=== PATIENT | male | born 1995 | race African-American/Black ===

== ENCOUNTER 2024-12-14 09:43 | Emergency (ER) | payer OTHER ==
[~2024-12-14] VITALS: Ht 190.5 cm; Wt 84.3 kg
[2024-12-14 09:46] VITALS: TEMP 37.2; O2SAT 100
[2024-12-14 09:47] VITALS: O2SAT 100
[2024-12-14 11:34] LABS: CLARITY URINE SL HAZY (CLEAR); COLOR URINE YELLOW (YELLOW); GLUCOSE URINE NEGATIVE (NEGATIVE); KETONES URINE NEGATIVE (NEGATIVE); LEUKOCYTE ESTERASE URINE NEGATIVE (NEGATIVE); NITRITE URINE NEGATIVE (NEGATIVE); OCCULT BLOOD URINE 3+ (NEGATIVE); PROTEIN URINE TRACE (NEGATIVE); SPECIFIC GRAVITY URINE >=1.030 (1.005-1.030); UROBILINOGEN URINE 0.2 E.U./dL (0.2-1.0)
[2024-12-14 11:38] VITALS: BP 158/102; PULSE 66; RESP 16
[2024-12-14] MEDS: KETOROLAC 30MG/ML VIAL IM NR (11:38)
[2024-12-14] MEDS: ONDANSETRON HCL 4MG/2ML INJ IM NR (11:38)
[2024-12-14 11:40] LABS: RBC URINE TNTC /hpf (0-2); SQUAMOUS EPITHELIAL CELL URINE FEW /lpf (RARE/1+)
[2024-12-14 11:41] LABS: BACTERIA URINE 1+; WBC URINE NONE SEEN /hpf (0-2); YEAST URINE NONE SEEN
[2024-12-14 12:10] LABS: BASOPHILS % 0.1 % (0.0-2.0); EOSINOPHILS % 0.8 % (0.0-5.0); HEMATOCRIT. 45.6 % (42.0-52.0); HEMOGLOBIN. 15.7 g/dL (14.0-18.0); LYMPHOCYTES % 7.8 % (20.0-50.0); MEAN CORPUSCULAR HEMOGLOBIN 30.1 pg (28.0-32.0); MEAN CORPUSCULAR HGB CONC 34.4 g/dL (31.0-37.0); MEAN CORPUSCULAR VOLUME 87.4 fL (80.0-94.0); MEAN PLATELET VOLUME 10.2 fl (7.4-10.4); MONOCYTES % 9.8 % (2.0-8.0); NEUTROPHILS % 81.5 % (40.0-76.0); PLATELET 217 x1000/uL (130-400); RED BLOOD CELL COUNT 5.22 mill/uL (4.7-6.1); RED CELL DISTRIBUTION WIDTH 12.9 % (11.6-14.6); WHITE BLOOD COUNT 9.2 x1000/uL (4.5-11.0)
[2024-12-14 12:29] LABS: CHLORIDE 103 mEq/L (98-107); POTASSIUM 3.8 mEq/L (3.5-5.1); SODIUM 140 mEq/L (136-145)
[2024-12-14 12:30] LABS: CARBON DIOXIDE 29 mEq/L (21-32)
[2024-12-14 12:31] LABS: CALCIUM 9.9 mg/dL (8.7-10.4)
[2024-12-14 12:32] LABS: PROTHROMBIN TIME 11.4 sec (9.6-11.0)
[2024-12-14 12:35] LABS: CREATININE 1.2 mg/dL (0.6-1.3); GLUCOSE 110 mg/dL (70-105)
[2024-12-14 12:36] LABS: UREA NITROGEN BLOOD 12 mg/dL (9-23)
[2024-12-14 12:37] LABS: ALANINE AMINOTRANSFERASE 20 IU/L (10-49); ALBUMIN 4.8 g/dL (3.2-4.8); ASPARTATE AMINOTRANSFERASE 19 IU/L (<34)
[2024-12-14 12:38] LABS: BILIRUBIN DIRECT 0.4 mg/dL (<=3.0); BILIRUBIN TOTAL 1.2 mg/dL (0.1-1.0); PROTEIN TOTAL 7.7 g/dL (6.0-8.3)
[2024-12-14] MEDS ORDERED: IOHEXOL-300 100 ML BOTTLE ONE (13:07)
[2024-12-14] MEDS ORDERED: ONDA4TAB50 MT (14:10)
[2024-12-14] MEDS ORDERED: HYDR-4001 MT (14:10)
[2024-12-14] MEDS ORDERED: TAMS-11 MT (14:10)
[2024-12-14] MEDS ORDERED: NAPR-681 PO (14:10)
[2024-12-14] MEDS ORDERED: CEPH500C2 MT (14:10)
== END 2024-12-14 14:58 | disposition home or self-care (01) ==
LOC: ER 09:59
DX: N13.2 Hydronephrosis with renal and ureteral calculous obstruction (principal); R10.31 Right lower quadrant pain
CPT/HCPCS: 99285; 74177; 80076; 80048; 81003; 83690; 85025; 85610; 36415; 96372; J1885; Q9967; J2405